=== PATIENT | male | born 1995 | race Two or more races ===

== ENCOUNTER 2021-12-28 08:07 | Emergency (ER) | payer MEDICAID, OTHER ==
[~2021-12-28] VITALS: Ht 165.1 cm; Wt 65.8 kg
[2021-12-28 08:36] VITALS: BP 151/89
[2021-12-28] MEDS ORDERED: IBUP800T27 PO (09:02)
[2021-12-28] MEDS ORDERED: CIPR1SUS8 OT (09:02)
== END 2021-12-28 09:22 | disposition home or self-care (01) ==
LOC: ER 08:07
DX: T16.1XXA Foreign body in right ear, initial encounter (principal); F17.210 Nicotine dependence, cigarettes, uncomplicated; Z88.0 Allergy status to penicillin; W22.8XXA Striking against or struck by other objects, initial encounter; Y93.89 Activity, other specified; Y92.89 Other specified places as the place of occurrence of the external cause; Y99.8 Other external cause status